=== PATIENT | female | born 1995 | race Two or more races ===

== ENCOUNTER 2022-01-14 02:46 | Inpatient (IN) | payer OTHER ==
[~2022-01-14] VITALS: Ht 175.3 cm; Wt 77.1 kg
--- NOTE | 2022-01-14 03:03 | NUR ---
SE RECIBE PTE ALERTA Y ORIENTADA POR NHUNG. PTE REFIERE PRESENTAR DOLOR PELVICO Y VOMITOS X 6 DESDE HACE NIYA HORA.
--- NOTE | 2022-01-14 03:25 | NUR ---
SE REXIBE PTE FEMENINO ALERTA Y ORIENTADA X3,EN COMPANIA DE FAMILIAR,SE ORIENTA A PTE SOBRE ORDEN MEDICA,SE BAR MUESTRAS Y SE ENVIAN A LABORATORIO,SE CANALIZA Y [id number] IVF PATENTE AREA DENNISE DE EDEMA Y ENROJECIMIENTO,SE ADMINISTRAN MEDICAMENMTOS LOAS CUALES PTE TOLERA,SE MANTIENE EN DAMI EN OBSERVACION POR CAMBIOS.
--- NOTE | 2022-01-14 05:02 | NUR ---
4:30PM PTE REFIERE QUE TIENE DOLOR ROSALVA NO QUIERE MEDICAMENTOS PARA EL DOLOR.PTE REFIERE QUERER ESTAR ALERTA PARA PODER ISABELLA DECISIONES.
--- NOTE | 2022-01-14 07:14 | NUR ---
PTE SE ENCUENTRA DURMIENDO, TIENE BARANADAS ELEVADAS, FRENOS AJUSTADOS Y TIMBRE ACCESIBLE. TIENE CANALIZACION PATENTE DENNISE DE EDEMA Y ERITEMA CON IV FLUIDS DE .9NSS @250ML/HR. TIENE PENDIENTE U/A Y SONO. SE NOTIFICA A PERSONAL DE SONO
--- NOTE | 2022-01-14 14:34 | NUR ---
SE BAR MUESTRAS DE LABORATORIO UTILIZANDO MEDIDAS ASEPTICAS, SE EZRA ROPA DE EDILIA DE OPERACIONES A PTE. PTE SE TRASLADA A EDILIA DE OPERACIONES.
[2022-01-15] MEDS ORDERED: PERCOCET 5-3251 EACH PO (08:17)
[2022-01-15] MEDS ORDERED: MOTRIN IB200 M1 PO (08:17)
== END 2022-01-15 13:57 | disposition home or self-care (01) | DRG 743 ==
LOC: ER 02:46 → O/R 13:14 → SEC-K 13:14 → O/R 14:49 → OB/GYN 18:44
PROVIDERS: ADMIT Student in an Organized Health Care Education/Training Program; ATTEND Student in an Organized Health Care Education/Training Program
PROC: 0UT10ZZ Resection of Left Ovary, Open Approach (ICD-10-PCS; 2022-01-14)
PROC: BW21ZZZ Computerized Tomography (CT Scan) of Abdomen and Pelvis (ICD-10-PCS; 2022-01-14)
PROC: BU4CZZZ Ultrasonography of Uterus and Ovaries (ICD-10-PCS; 2022-01-14)
PROC: 0UT60ZZ Resection of Left Fallopian Tube, Open Approach (ICD-10-PCS; principal; 2022-01-14 14:00)
DX: N83.512 Torsion of left ovary and ovarian pedicle (principal); Z20.822 Contact with and (suspected) exposure to COVID-19